=== PATIENT | male | born 1995 | race African-American/Black ===

== ENCOUNTER 2020-08-03 16:27 | Emergency (ER) | payer OTHER ==
[~2020-08-03] VITALS: Ht 175.3 cm; Wt 72.6 kg
[2020-08-03 18:23] LABS: ABSOLUTE NEUTROPHILS 1.5 thou/uL (1.4-8.2); BASOPHILS 1.9 % (0.0-2.0); HEMATOCRIT 44.9 % (42.0-52.0); HEMOGLOBIN 14.2 gm/dL (14.0-18.0); LYMPHOCYTES 47.4 % (24.0-44.0); MCH 26.4 pg (26.0-34.0); MCHC 31.5 g/dL (28.0-37.0); MCV 83.7 fL (80.0-100.0); MONOCYTES 6.5 % (1.0-8.0); PLATELET COUNT 253 thou/uL (150-400); POLYS 39.2 % (36.0-66.0); RBC 5.37 mil/uL (4.50-6.00); RDW 14.2 % (10.5-14.5); WBC 3.8 thou/uL (4.0-11.0)
[2020-08-03 18:31] LABS: CALCIUM 9.7 mg/dL (8.5-10.1); POTASSIUM 4.4 mmol/L (3.5-5.1)
[2020-08-03 21:15] VITALS: BP 96/55
== END 2020-08-03 21:30 | disposition home or self-care (01) ==
LOC: ER 16:27
PROVIDERS: Nurse Practitioner
DX: F99 Mental disorder, not otherwise specified (principal); F20.9 Schizophrenia, unspecified